=== PATIENT | male | born 1965 | race Caucasian/White ===

== ENCOUNTER 2018-08-09 10:19 | Day surgery (SDC) | payer OTHER ==
[2018-08-08 13:01] VITALS: BMI 28.1
[2018-08-09 11:55] VITALS: TEMP 98.6
[2018-08-09 12:38] VITALS: BP 134/79; PULSE 67
== END 2018-08-09 12:38 | disposition home or self-care (01) ==
LOC: JASU-ENDO 10:19
PROVIDERS: ATTEND Internal Medicine Gastroenterology
PROC: 0DJD8ZZ Inspection of Lower Intestinal Tract, Via Natural or Artificial Opening Endoscopic (ICD-10-PCS; principal; 2018-08-09 11:15)
DX: Z12.11 Encounter for screening for malignant neoplasm of colon (principal)